=== PATIENT | female | born 1975 | race American Indian/Alaskan Native ===

== ENCOUNTER 2018-12-07 19:40 | Emergency (ER) | payer OTHER ==
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
[2018-12-07] MEDS ORDERED: KETOROLAC 30 MG/1 ML INJ IV ONE (21:37)
[2018-12-07] MEDS ORDERED: diphenhydrAMINE 50 MG/ML VIAL IV ONE (21:37)
[2018-12-07] MEDS ORDERED: SODIUM CHLORIDE 0.9% 1000 ML 1,000 ML IV ONE (21:37)
[2018-12-07] MEDS ORDERED: METOCLOPRAMIDE 10 MG/2 ML INJ IV ONE (21:37)
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
[2018-12-08 00:10] VITALS: BP 109/60
== END 2018-12-07 23:44 | disposition home or self-care (01) ==
LOC: ED 19:40
DX: R51 Headache (principal); R11.2 Nausea with vomiting, unspecified; V87.7XXA Person injured in collision between other specified motor vehicles (traffic), initial encounter; Y93.89 Activity, other specified; Y92.488 Other paved roadways as the place of occurrence of the external cause; Y99.8 Other external cause status
CPT/HCPCS: 96361; 96374; 96375; 99282; J1200; J1885; J2765; J7030